=== PATIENT | female | born 1965 | race Caucasian/White ===

== ENCOUNTER 2018-04-14 07:58 | Emergency (ER) | payer OTHER, SELFPAY ==
[~2018-04-14] VITALS: Ht 165.1 cm; Wt 46.4 kg
[2018-04-14] MEDS ORDERED: THIAMINE 100MG TABLET ONE (08:22)
[2018-04-14] MEDS ORDERED: LORazepam 2 MG/ML, 1ML ONE (08:23)
[2018-04-14] MEDS ORDERED: ONDANSETRON ODT 4 MG ONE (08:24)
[2018-04-14] MEDS ORDERED: ONDANSETRON ODT 4 MG PO ONE (08:30)
[2018-04-14] MEDS ORDERED: LORazepam 2 MG/ML, 1ML IVPush ONE (08:30)
[2018-04-14 08:49] LABS: BASOPHILS % (AUTO) 1 % (0-1); EOSINOPHILS # (AUTO) 0.08 x10^3/uL (0-0.4); EOSINOPHILS % (AUTO) 1 % (1-7); LYMPHOCYTES % (AUTO) 17 % (22-44); MD NO; MEAN CORPUSCULAR HEMOGLOBIN 32.2 pg (27.0-34.8); MEAN CORPUSCULAR VOLUME 94.7 fL (80-100); MEAN PLATELET VOLUME 8.6 fL (7.4-10.4); MONOCYTES # (AUTO) 0.47 x10^3/uL (0.2-0.8); MONOCYTES % (AUTO) 4 % (2-9); NEUTROPHILS # (AUTO) 9.78 x10^3/uL (1.8-6.8); NEUTROPHILS % (AUTO) 78 % (42-75); PLATELET COUNT 310 x10^3/uL (130-400); RED CELL DISTRIBUTION WIDTH 13.6 % (9.6-15.2)
[2018-04-14 08:59] LABS: ALANINE AMINOTRANSFERASE 30 U/L (12-78); ALBUMIN 4.4 g/dL (3.4-5.0); ANION GAP 15 mmol/L (5-15); CALCIUM 9.2 mg/dL (8.5-10.1); CHLORIDE 100 mmol/L (98-107); CREATININE 0.71 mg/dL (0.55-1.02)
[2018-04-14] MEDS ORDERED: THIAMINE 100MG TABLET PO ONE (09:00)
[2018-04-14] MEDS ORDERED: SODIUM CHLORIDE 0.9% 1,000ML IVBOLUS ONE (09:00)
[2018-04-14 09:01] LABS: ALKALINE PHOSPHATASE 83 U/L (45-117); BILIRUBIN,TOTAL 0.5 mg/dL (0.2-1.0); TOTAL PROTEIN 8.2 g/dL (6.4-8.2)
[2018-04-14 09:04] LABS: MICROSCOPIC INDICATED
[2018-04-14 09:23] LABS: CULTURE INDICATED? YES
[2018-04-14 10:06] VITALS: BP 167/92
== END 2018-04-14 10:16 | disposition home or self-care (01) ==
LOC: ED 09:37
DX: R42 Dizziness and giddiness (principal); R55 Syncope and collapse; F10.120 Alcohol abuse with intoxication, uncomplicated; I10 Essential (primary) hypertension; F17.200 Nicotine dependence, unspecified, uncomplicated
CPT/HCPCS: 36415; 80053; 81001; 81025; 85025; 87086; 93005; 96374; 99285; J2060; J7030; Q0162